=== PATIENT | female | born 1965 | race Caucasian/White ===

== ENCOUNTER 2016-08-27 10:28 | Emergency (ER) | payer MEDICARE, MEDICAID ==
[~2016-08-27] VITALS: Ht 160 cm; Wt 149.0 kg
[~2016-08-27 10:28] MED LIST: ALBU18HF INH; ATOR10TA9 PO; BUPR100T6 PO; BUPR75TA5 PO; ENOX30SY4 SQ; FLUT12HF3 IH; FURO-92 PO; FURO40TA6 PO; HYDR-3343 PO; HYDR50SY PO; LEVO75TA5 PO; LOVA20TA2 PO; METF500T4 PO; METO1TAB18 PO; METO50TA82 PO; Nebulizer INH; POTA10TA11 PO; POTA10TA31 PO; VENL150C PO; WARF1TAB PO; WARF7.5T PO
[2016-08-27] MEDS ORDERED: SODIUM CHLORIDE 0.9% 1,000ML IVBOLUS ONE (11:00)
[2016-08-27] MEDS ORDERED: METOCLOPRAMIDE 5 MG/ML, 2ML IVPush ONE (11:00)
[2016-08-27] MEDS ORDERED: SODIUM CHLORIDE FLUSH 10ML SYR IVF ONE (11:00)
[2016-08-27] MEDS ORDERED: METOCLOPRAMIDE 5 MG/ML, 2ML ONE (11:09)
[2016-08-27 11:41] LABS: ASPARTATE AMINO TRANSFERASE 13 U/L (15-37); BLOOD UREA NITROGEN 16 mg/dL (7-18)
[2016-08-27 12:58] VITALS: BP 131/80
== END 2016-08-27 13:00 | disposition home or self-care (01) ==
LOC: ED 11:17
DX: K29.50 Unspecified chronic gastritis without bleeding (principal); I10 Essential (primary) hypertension; E11.9 Type 2 diabetes mellitus without complications; F17.200 Nicotine dependence, unspecified, uncomplicated; Z86.718 Personal history of other venous thrombosis and embolism; Z88.1 Allergy status to other antibiotic agents
CPT/HCPCS: 36415; 71010; 80053; 81003; 83690; 85025; 93005; 96361; 96374; 99285; J2765; J7030

== ENCOUNTER 2016-09-03 19:48 | Emergency (ER) | payer MEDICARE, MEDICAID ==
[~2016-09-03] VITALS: Ht 160 cm; Wt 137.0 kg
[2016-09-03] MEDS ORDERED: SODIUM CHLORIDE 0.9% 1,000 ML IV ONE (20:15)
[2016-09-03] MEDS ORDERED: FAMOTIDINE 20 MG/2 ML IVP ONE (20:30)
[2016-09-03] MEDS ORDERED: SODIUM CHLORIDE 0.9% 1,000ML IVBOLUS ONE ×2 (20:30→22:00)
[2016-09-03] MEDS ORDERED: ONDANSETRON 2MG/ML, 2ML IVPush ONE (20:30)
[2016-09-03] MEDS ORDERED: ONDANSETRON 2MG/ML, 2ML ONE (20:31)
[2016-09-03] MEDS ORDERED: FAMOTIDINE 20 MG/2 ML ONE (20:31)
[2016-09-03 21:16] LABS: ASPARTATE AMINO TRANSFERASE 19 U/L (15-37); BLOOD UREA NITROGEN 18 mg/dL (7-18)
[2016-09-03] MEDS ORDERED: MORPHINE SULFATE 4 MG/ML, 1ML ONE (21:41)
[2016-09-03 21:47] VITALS: BP 194/116
[2016-09-03] MEDS ORDERED: MORPHINE SULFATE 4 MG/ML, 1ML IVPush PRN (22:00)
[2016-09-03] MEDS ORDERED: LORazepam 2 MG/ML, 1ML IVPush ONE (22:00)
[2016-09-03] MEDS ORDERED: OMNIPAQUE 350 MG/ML, 100ML BOTTLE ONE (22:06)
== END 2016-09-03 23:50 | disposition home or self-care (01) ==
LOC: ED 22:43
DX: R10.84 Generalized abdominal pain (principal); R11.2 Nausea with vomiting, unspecified; E86.0 Dehydration; R19.7 Diarrhea, unspecified; E66.01 Morbid (severe) obesity due to excess calories; E11.9 Type 2 diabetes mellitus without complications; I11.0 Hypertensive heart disease with heart failure; I50.9 Heart failure, unspecified; Z86.718 Personal history of other venous thrombosis and embolism; F17.200 Nicotine dependence, unspecified, uncomplicated
CPT/HCPCS: 36415; 74022; 74177; 80053; 81003; 83690; 85025; 93005; 96361; 96374; 96375; 99285; J2405; J7030; Q9967; S0028

== ENCOUNTER → 2016-10-15 | Outpatient (CLI) | payer MEDICARE, MEDICAID ==
[~2016-10-15] MED LIST changes: +ALBU1.25 NEB
[2016-10-15 16:59] LABS: BLOOD UREA NITROGEN 19 mg/dL (7-18)
[2016-10-15 17:03] LABS: ASPARTATE AMINO TRANSFERASE 24 U/L (15-37)
== END | disposition home or self-care (01) ==
LOC: STAR 14:46
PROVIDERS: ATTEND Internal Medicine Gastroenterology
DX: Z01.818 Encounter for other preprocedural examination (principal); K52.9 Noninfective gastroenteritis and colitis, unspecified; R11.2 Nausea with vomiting, unspecified; R13.19 Other dysphagia; E66.01 Morbid (severe) obesity due to excess calories
CPT/HCPCS: 36415; 80053; 82784; 83516; 84439; 84443; 85025; 93005

== ENCOUNTER 2016-10-29 06:27 | Day surgery (SDC) | payer MEDICARE, MEDICAID ==
[~2016-10-29] VITALS: Ht 160 cm; Wt 136.0 kg
[2016-10-29] MEDS ORDERED: LIDOCAINE 1%, 2ML ONE (07:11)
[2016-10-29 07:28] VITALS: BP 150/73
[2016-10-29] MEDS ORDERED: LISI-170 PO (07:31)
[2016-10-29] MEDS ORDERED: LACTATED RINGERS 1,000 ML IV SCH (07:33)
[2016-10-29] MEDS ORDERED: LIDOCAINE 1%, 2ML SQ PRN (08:00)
[2016-10-29] MEDS ORDERED: ACETAMINOPHEN 325 MG TABLET PO PRN (10:30)
[2016-10-29] MEDS ORDERED: MIDAZOLAM 1 MG/ML, 2ML IV PRN (10:30)
[2016-10-29] MEDS ORDERED: ONDANSETRON 2MG/ML, 2ML IVPush PRN (10:30)
[2016-10-29] MEDS ORDERED: OXYcodone 5 MG/5 ML ORAL.SOL UDC PO PRN (10:30)
[2016-10-29] MEDS ORDERED: PROMETHAZINE 25 MG/ML, 1ML IV PRN (10:30)
[2016-10-29] MEDS ORDERED: MEPERIDINE/PF 25MG/0.5ML IVPush PRN (10:30)
[2016-10-29] MEDS ORDERED: HYDROmorphone 1 MG/ML, 1ML IV PRN (10:30)
[2016-10-29] MEDS ORDERED: FENTANYL PF 100 MCG/2ML IV PRN (10:30)
[2016-10-29] MEDS ORDERED: LABETALOL 5MG/ML, 20ML IV PRN (10:30)
[2016-10-29] MEDS ORDERED: ALBUTEROL SULFATE 2.5 MG/3 ML NPPB PRN (10:30)
[2016-10-29] MEDS ORDERED: hydrALAzine 20 MG/ML, 1ML IV PRN (10:30)
[2016-10-29] MEDS ORDERED: ONDANSETRON 2MG/ML, 2ML ONE (16:15)
[2016-10-29] MEDS ORDERED: DEXAMETHASONE 4 MG/ML, 1ML ONE (16:15)
[2016-10-29] MEDS ORDERED: PROPOFOL 10 MG/ML, 50ML ONE (16:15)
== END 2016-10-29 13:50 ==
LOC: OUT 06:27
PROVIDERS: ATTEND Internal Medicine Gastroenterology
DX: K63.5 Polyp of colon (principal); K21.9 Gastro-esophageal reflux disease without esophagitis; K58.9 Irritable bowel syndrome, unspecified; J44.9 Chronic obstructive pulmonary disease, unspecified; F17.210 Nicotine dependence, cigarettes, uncomplicated; E03.9 Hypothyroidism, unspecified; E66.01 Morbid (severe) obesity due to excess calories; Z68.43 Body mass index [BMI] 50.0-59.9, adult; E11.9 Type 2 diabetes mellitus without complications; Z72.0 Tobacco use; Z88.1 Allergy status to other antibiotic agents
CPT/HCPCS: 43235; 45380; 45385; 74176; 82962; 88305; C1725; J1100; J2405; J2704; J3490; J7120